=== PATIENT | male | born 1985 | race American Indian/Alaskan Native ===

== ENCOUNTER 2018-03-30 15:22 | Emergency (ER) | payer OTHER ==
[2018-03-30] MEDS ORDERED: PERCOCET 5/325 PO ONE (16:05)
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
[2018-03-30 19:02] VITALS: BP 138/76
== END 2018-03-30 19:07 | disposition home or self-care (01) ==
LOC: ED 15:22
DX: R51 Headache (principal); M54.2 Cervicalgia; M54.6 Pain in thoracic spine; J45.909 Unspecified asthma, uncomplicated; V89.2XXA Person injured in unspecified motor-vehicle accident, traffic, initial encounter; Y93.89 Activity, other specified; Y99.8 Other external cause status; Y92.410 Unspecified street and highway as the place of occurrence of the external cause
CPT/HCPCS: 70450; 72072; 72100; 72125